=== PATIENT | female | born 1955 | race Caucasian/White ===

== ENCOUNTER → 2017-01-05 | Outpatient (CLI) | payer OTHER | END | disposition home or self-care (01) | LOC: YCFC.O 08:42 | PROVIDERS: ATTEND Nurse Practitioner Family | DX: R50.9 Fever, unspecified (principal) ==

== ENCOUNTER → 2017-02-15 | Outpatient (CLI) | payer OTHER | END | disposition home or self-care (01) | LOC: YCFC.O 18:21 | PROVIDERS: ATTEND Nurse Practitioner Family | DX: E11.9 Type 2 diabetes mellitus without complications (principal); E78.2 Mixed hyperlipidemia ==

== ENCOUNTER → 2017-03-25 | Outpatient (CLI) | payer OTHER | END | disposition home or self-care (01) | LOC: LAB.O 06:47 | PROVIDERS: ATTEND Nurse Practitioner Family | DX: D72.829 Elevated white blood cell count, unspecified (principal); E87.8 Other disorders of electrolyte and fluid balance, not elsewhere classified ==

== ENCOUNTER → 2017-06-13 | Outpatient (CLI) | payer OTHER ==
--- NOTE | 2017-06-16 08:04 | RAD ---
Procedure: XR CHEST 2 VIEWS Exam date: 06/13/2017 12:00 AM CDT Ordering Provider: Erica Chan Clinical Indication: PRE-OP Z01.818 Comparison: 01/25/2016 Findings: Cardiomediastinal silhouette is within normal limits. The lungs are clear. No pleural effusion or pneumothorax. Osseous structures are nonacute. Stable thoracic scoliosis. No evidence of active tuberculosis. Impression: No acute cardiopulmonary process. Electronically signed by: Zac Valdivia MD 06/16/2017 8:02 AM CDT
== END ==
LOC: RESP 21:22
PROVIDERS: ATTEND Nurse Practitioner Family
DX: Z01.818 Encounter for other preprocedural examination (principal)

== ENCOUNTER → 2017-06-25 | Outpatient (CLI) | payer OTHER | END | disposition home or self-care (01) | LOC: YCFC.O 07:01 | PROVIDERS: ATTEND Nurse Practitioner Family | DX: R80.9 Proteinuria, unspecified (principal); E87.1 Hypo-osmolality and hyponatremia ==

== ENCOUNTER → 2017-07-04 | Outpatient (CLI) | payer OTHER | END | disposition home or self-care (01) | LOC: YCFC.O 07:15 | PROVIDERS: ATTEND Orthopaedic Surgery | DX: N39.0 Urinary tract infection, site not specified (principal); R80.9 Proteinuria, unspecified; D72.829 Elevated white blood cell count, unspecified; Z01.818 Encounter for other preprocedural examination ==

== ENCOUNTER → 2017-07-15 | Outpatient (CLI) | payer OTHER ==
--- NOTE | 2017-07-15 13:16 | RAD ---
EXAM DESCRIPTION: Knee,Left Complete CLINICAL HISTORY: OSTEOARTHRITIS OF KNEE COMPARISON: July 20, 2015. FINDINGS: 4 views of the left knee including standing neutral and 45 degree flexion shows severe narrowing of the medial tibiofemoral compartment with mild flattening of the weightbearing articular surface of the femoral condyle. Moderate medial joint line osteophytes are seen with sclerotic changes at the articulation. Progressively worsened from previous exam. Mild varus deformity is seen. There is mild widening of the lateral tibiofemoral compartment with mild joint line osteophytes. Moderate osteophytes of the patellofemoral compartment with mild joint space narrowing is seen. The soft tissues are unremarkable. IMPRESSION: Interval worsening of 3 compartment osteoarthritic changes of the left knee with now severe advanced osteoarthritic changes of the medial tibiofemoral compartment. Electronically signed by: Theodore Lyons MD 07/15/2017 1:15 PM CDT
--- NOTE | 2017-07-15 13:16 | RAD ---
EXAM DESCRIPTION: Pelvis CLINICAL HISTORY: PAIN IN BILATERAL HIPS COMPARISON: None. TECHNIQUE: AP pelvis FINDINGS: The bony pelvis is normal. No fracturing is detected. Proximal femurs are unremarkable. Minimal acetabular osteophyte formation is observed bilaterally. IMPRESSION: Minimal degenerative changes are observed in both hips. The exam is otherwise unremarkable. Electronically signed by: Niranjan Oconnell MD 07/15/2017 1:15 PM CDT
--- NOTE | 2017-07-15 13:18 | RAD ---
EXAM DESCRIPTION: Knee,Right Complete CLINICAL HISTORY: OSTEOARTHRITIS OF KNEE COMPARISON: Left knee dated the same date TECHNIQUE: 4 views right FINDINGS: Loss of medial joint space is observed. Mild lateral femoral osteophyte formation is observed. No joint effusion is seen. Mild patellofemoral joint arthritis is seen. Calcific atherosclerotic changes observed in the popliteal artery. IMPRESSION: Tricompartmental joint arthritis is observed without evidence of a joint effusion. The changes are less pronounced than seen on the left. Electronically signed by: Niranjan Oconnell MD 07/15/2017 1:17 PM CDT
== END | disposition home or self-care (01) ==
LOC: RAD 08:01
PROVIDERS: ATTEND Orthopaedic Surgery
DX: M17.0 Bilateral primary osteoarthritis of knee (principal); M25.551 Pain in right hip; M25.552 Pain in left hip

== ENCOUNTER 2017-07-16 05:47 | Inpatient (IN) | payer OTHER ==
--- NOTE | 2017-07-15 08:12 | HP ---
CHIEF COMPLAINT: Left knee pain. HISTORY OF PRESENT ILLNESS: Ruby is a 59-year-old female with a history of knee pain that has been getting progressively worse. She has had multiple injections and at this point those injections failed to give her anymore relief. Because of her ongoing pain, she has requested operative intervention. After discussing the risks, benefits and alternatives to total knee arthroplasty, the patient has given informed consent. PAST SURGICAL HISTORY: 1. Tonsillectomy. 2. Hysterectomy. MEDICATIONS: 1. Bystolic. 2. Hydrochlorothiazide. 3. Rosuvastatin. 4. Metformin. 5. Carbamazepine. 6. Potassium. 7. Motrin p.r.n. ALLERGIES: NO KNOWN DRUG ALLERGIES. CODE STATUS: Full code. IMMUNIZATIONS: Up to date. SOCIAL HISTORY: The patient does not drink or use any illicit drugs. She does smoke. FAMILY HISTORY: None pertinent to today's complaint. REVIEW OF SYSTEMS: Negative except as indicated in the History of Present Illness. PHYSICAL EXAMINATION: VITAL SIGNS: Blood pressure 164/85. Pulse 78. Height 5'2". Weight 248. GENERAL: She is an obese female in no acute distress. MENTAL STATUS: The patient is awake, alert, and is able to give a good history and participate in the physical. The patient is oriented to person, place and time. SKIN: Normal tone and turgor. HEENT: Normocephalic, atraumatic. Pupils equal, round and reactive. Mucosal membranes are moist. NECK: Normal range of motion. No thyromegaly, no lymphadenopathy. CHEST: Normal respiratory excursion. CARDIAC: Regular rate and rhythm. No murmurs, rubs or gallops. MUSCULOSKELETAL: Bilateral upper extremities show full active range of motion without pain. Sensation is intact in the extremities and they are warm and well perfused. She has no deformities. The right lower extremity shows full range of motion of the hip. The knee has range of motion from 0 to about 125 degrees. She has slight limitation secondary to body habitus. Sensation is intact throughout the extremity. It is warm and well perfused. She has no varus/valgus or anterior/posterior laxity. She has no discernible effusion. The left lower extremity shows pretty severe pain to palpation. She has most prominent pain along the medial aspect. Sensation is intact throughout the extremity. It is warm and well perfused. She has no varus/valgus or anterior/ posterior laxity to the knee. IMAGING: X-rays show severe arthritis. ASSESSMENT: 1. Arthritis of the knee failed conservative measures. PLAN: The plan at this point is for total knee arthroplasty. We have discussed the risks, benefits, and alternatives to that and the patient has given informed consent. [facility][id number] [facility]
[~2017-07-16 05:47] MED LIST: LACTATED RINGERS 1,000 ML ONE; SODIUM CHL 0.9% 100ML MINI-BAG 100 ML IVPB ONE; SODIUM CHLORIDE 0.9% 100ML 100 ML IVPB ONE; SODIUM CHLORIDE 0.9% 250ML 250 ML ONE; TRANEXAMIC ACID 1,000 MG/10 ML VIAL ONE; VANCOMYCIN HCL INJ 1,000 MG VIAL IVPB ONE; ceFAZolin SODIUM 1 GM VIAL ONE
[2017-07-16] MEDS ORDERED: ceFAZolin SODIUM 1 GM VIAL ONE (06:11)
[2017-07-16] MEDS ORDERED: VANCOMYCIN HCL INJ 1,000 MG VIAL IVPB ONE ×3 (06:12→17:11)
[2017-07-16] MEDS ORDERED: MORPHINE SULFATE *EPIDURAL* 0.5 MG/ML VIAL ONE (06:21)
[2017-07-16] MEDS ORDERED: ACETAMINOPHEN IV 1000MG 100 ML ONE (06:21)
[2017-07-16] MEDS ORDERED: MIDAZOLAM INJ 5 MG/5 ML VIAL ONE (06:22)
[2017-07-16] MEDS ORDERED: fentaNYL CITRATE INJ 50 MCG/ML AMP ONE (06:22)
[2017-07-16] MEDS ORDERED: SCOPOLAMINE PATCH 1.5MG 1 EA TD ONE (06:34)
[2017-07-16] MEDS ORDERED: LEVALBUTEROL NEBS 1.25 MG/3 ML VIAL NEB ONE ×3 (06:38→10:11)
[2017-07-16] MEDS: ceFAZolin SODIUM 1 GM VIAL ONE ×2 (08:02→09:11)
[2017-07-16] MEDS: VANCOMYCIN HCL INJ 1,000 MG VIAL IVPB ONE ×2 (08:04→09:11)
[2017-07-16] MEDS: BUPIVACAINE 0.25% W/EPI 50 ML VIAL INJ ONE ×2 (08:04→09:51)
[2017-07-16] MEDS ORDERED: MORPHINE PCA 1 MG/ML 100 ML BAG IVPB ONE (08:29)
[2017-07-16] MEDS ORDERED: KETAMINE HCL 100 MG/ML VIAL ONE (09:03)
[2017-07-16] MEDS ORDERED: ALUMINUM & MAGNESIUM HYDROXIDE 30 ML UD PO PRN (09:34)
[2017-07-16] MEDS ORDERED: MAGNESIUM HYDROXIDE 30 ML UD PO PRN (09:34)
[2017-07-16] MEDS ORDERED: MORPHINE SULFATE INJ 10 MG/ML VIAL IV PRN (09:34)
[2017-07-16] MEDS ORDERED: BISACODYL SUPPOSITORY 10 MG PR PRN (09:34)
[2017-07-16] MEDS ORDERED: ONDANSETRON INJ 4 MG/2 ML VIAL IV PRN (09:34)
[2017-07-16] MEDS ORDERED: ZOLPIDEM TARTRATE 5 MG TAB PO PRN (09:34)
[2017-07-16] MEDS ORDERED: TRANEXAMIC ACID INJ 1,000 MG in SODIUM CHLORIDE 0.9% 100ML 100 ML IVPB ONE (09:34)
[2017-07-16] MEDS ORDERED: ACETAMINOPHEN 500 MG TAB PO PRN (09:34)
[2017-07-16] MEDS ORDERED: NALOXONE HCL INJ 0.4 MG/ML VIAL IV PRN (09:34)
[2017-07-16] MEDS ORDERED: ACETAMINOPHEN 325 MG TAB PO PRN (09:34)
[2017-07-16] MEDS ORDERED: PROMETHAZINE HCL INJ 12.5 MG in SODIUM CHLORIDE 0.9% 50ML 50 ML IVPB PRN (09:34)
[2017-07-16] MEDS ORDERED: BENZOCAINE-MENTH LOZ (CEPACOL) 1 EA LOZ MT PRN (09:34)
[2017-07-16] MEDS ORDERED: DEX 5% W/NACL 0.45% 1000ML 1,000 ML IVS PRN (09:34)
[2017-07-16] MEDS ORDERED: PROMETHAZINE HCL INJ 25 MG in SODIUM CHLORIDE 0.9% 50ML 50 ML IVPB PRN (09:34)
[2017-07-16] MEDS ORDERED: MORPHINE SULFATE INJ 10 MG/ML VIAL IM PRN (09:34)
[2017-07-16] MEDS ORDERED: SUGAMMADEX SODIUM 200 MG/2 ML VIAL IV ONE (09:53)
[2017-07-16] MEDS ORDERED: MORPHINE PCA 1 MG/ML 100ML 1 BAG in PREMIX BAG 1 BAG IVPB SCH (10:00)
[2017-07-16] MEDS: IV SET AND CAP CHANGE INJ INJ SCH (11:55)
[2017-07-16] MEDS ORDERED: raNITIdine HCL INJ 25 MG/ML VIAL IV ONE (12:00)
[2017-07-16] MEDS ORDERED: ROCURONIUM BROMIDE 10 MG/ML VIAL IV ONE (12:00)
[2017-07-16] MEDS ORDERED: LIDOCAINE 1% 10 ML VIAL INJ ONE (12:00)
[2017-07-16] MEDS ORDERED: DEXAMETHASONE INJ 10 MG/ML VIAL IV ONE (12:00)
[2017-07-16] MEDS: SODIUM CHLORIDE 0.45% 1000ML 1,000 ML IVS PRN (12:00)
[2017-07-16] MEDS ORDERED: ePHEDrine SULF 50 MG/ML IV ONE (12:00)
[2017-07-16] MEDS ORDERED: PROPOFOL 200 MG/20 ML VIAL IV ONE (12:00)
[2017-07-16] MEDS ORDERED: diphenhydrAMINE HCL 50 MG/ML VIAL IV PRN (12:52)
[2017-07-16] MEDS ORDERED: GLUCAGON INJ 1 MG VIAL SUBCU PRN (14:00)
[2017-07-16] MEDS ORDERED: DEXTROSE 50% 25 GM/50 ML SYG IV PRN (14:00)
[2017-07-16] MEDS ORDERED: CELECOXIB 100 MG CAP ONE (14:08)
[2017-07-16] MEDS ORDERED: CEFAZOLIN SODIUM 2 GRAMS IV 50 ML IVPB ONE ×2 (14:08→23:20)
--- NOTE | 2017-07-16 14:29 | CONS ---
SUPERVISING PHYSICIAN: Lake Moore MD DATE OF CONSULTATION: 07/16/17 CHIEF COMPLAINT: Left knee pain. HISTORY OF PRESENT ILLNESS: This is a 61-year-old female patient that has a significant history of knee pain that has progressively worsened. She has had multiple injections and other conservative measures and they have failed to give her any pain relief. Due to her ongoing pain, she had requested Dr. Jack Pittman, orthopedic surgeon, to perform operative intervention. She was admitted today for left total knee arthroplasty. I am seeing the patient postoperatively. PAST MEDICAL HISTORY: 1. Seizures with one grand mal seizure in 1997. Otherwise, she occasionally has petit mal seizures. 2. Hypertension. 3. Hyperlipidemia. 4. Mild scoliosis. 5. Diabetes mellitus, type 2. PAST SURGICAL HISTORY: 1. Tonsillectomy. 2. Hysterectomy. CURRENT MEDICATIONS: Per the EMR and awaiting verification. ALLERGIES: NO KNOWN DRUG ALLERGIES. CODE STATUS: Full code. FAMILY HISTORY: Noncontributory. SOCIAL HISTORY: She smokes approximately 1/2 pack of cigarettes daily. She drinks alcohol on a social basis only. She denies any illicit drug use. She is . She has one child. She lives in [place] and works at [employer]. REVIEW OF SYSTEMS: GENERAL: Denies fever, fatigue or weight changes. HEENT: Denies sinus symptoms, ear pain, vision changes or sore throat. RESPIRATORY: Negative for wheezing, coughing or shortness of breath. CARDIAC: Negative for chest pain, palpitations or tachycardia. GASTROINTESTINAL: Negative for vomiting, diarrhea, constipation or abdominal pain. MUSCULOSKELETAL: As per history of present illness. SKIN: Denies lesions or rashes. NEUROLOGIC: Denies any recent seizures, headache or dizziness. PHYSICAL EXAMINATION: VITAL SIGNS: Afebrile. Heart rate 87. Blood pressure 161/82. Respiratory rate 14. O2 saturation 93% on 2 liters nasal cannula. GENERAL: This is a 61-year-old, female patient who is lying in her hospital bed. She is in no acute distress . HEENT: Normocephalic, atraumatic. Pupils are equal and reactive. Oropharynx is clear. NECK: Supple without mass. RESPIRATORY: Essentially clear to auscultation bilaterally. CHEST: There is equal rise and fall of the chest with inspiration and expiration. CARDIOVASCULAR: Regular rate and rhythm. ABDOMEN: Soft, nondistended, nontender. Bowel sounds are positive. EXTREMITIES: She has an Iceman in place to her left knee. She has a trace pedal edema to bilateral lower extremities. Pedal pulses are palpable at +2 bilaterally. NEUROLOGIC: Awake, alert and oriented times three. LABORATORY: Glucoses run between 105 and 138. UA shows greater than 300 urine protein and trace intact urine blood. Otherwise, within normal limits. Her other x-rays and labs are as per the EMR. ASSESSMENT: 1. Arthritis of the left knee that has failed conservative measures, status post left total knee arthroplasty per Dr. Jack Pittman, orthopedic surgeon, postoperative day 0. 2. Seizure disorder on Tegretol. 3. Hypertension. 4. Hyperlipidemia. 5. Diabetes mellitus, type 2. PLAN: We will continue present supportive care. Her orthopedic issues will be per Dr. Pittman. Tomorrow, she will begin her physical therapy for strengthening and conditioning. I have restarted her home medications. I have also ordered a sliding scale insulin for any elevated blood sugars. She also complained of some itching, so I have ordered Benadryl for that. Otherwise, we will continue to monitor the patient closely and follow as needed. Dr. Moore is the collaborating physician and available for consultation. #[id number] [facility]
[2017-07-16] MEDS: CEFAZOLIN SODIUM 2 GRAMS IV 2 GM in PREMIX BAG 1 BAG IVPB SCH ×2 (15:20→23:26)
[2017-07-16] MEDS: INSULIN LISPRO 100 UNITS/ML PEN SUBCU SCH ×2 (16:29→21:05)
--- NOTE | 2017-07-16 16:42 | RAD ---
EXAM DESCRIPTION: Knee,Left 2 or More Views CLINICAL HISTORY: TKA COMPARISON: 15 July 2017 TECHNIQUE: AP and lateral views of the left knee FINDINGS: A total knee arthroplasty is observed in place. Positioning is near-anatomic. Postoperative air is observed anteriorly. IMPRESSION: New left total knee arthroplasty. Electronically signed by: Niranjan Oconnell MD 07/16/2017 4:41 PM CDT
[2017-07-16] MEDS ORDERED: SODIUM CHLORIDE 0.9% 250ML 250 ML ONE (16:49)
[2017-07-16] MEDS: metFORMIN HCL 500 MG TAB PO SCH (17:08)
[2017-07-16] MEDS: CELECOXIB 100 MG CAP PO SCH (17:08)
[2017-07-16] MEDS: VANCOMYCIN HCL INJ 1,000 MG in SODIUM CHLORIDE 0.9% 250ML 250 ML IVPB SCH (17:11)
[2017-07-16] MEDS: ALBUTEROL SULFATE 2.5 MG/3 ML VIAL NEB PRN ×3 (17:41→21:14)
[2017-07-16] MEDS ORDERED: NON-FORMULARY MEDICATION 1 EA MIS (Rosuvastatin Calcium [Crestor] 20 MG) PO SCH (21:00)
[2017-07-16] MEDS ORDERED: NON-FORMULARY MEDICATION 1 EA MIS (Potassium [Potassium] 99 MG) PO SCH (21:00)
[2017-07-16] MEDS ORDERED: NEBIVOLOL 2.5 MG TAB ONE (21:03)
[2017-07-16] MEDS: DOCUSATE CALCIUM 240 MG CAP PO SCH (21:24)
[2017-07-16] MEDS: ATORVASTATIN 20 MG TAB PO SCH (21:24)
[2017-07-16] MEDS: ENOXAPARIN SODIUM 30 MG/0.3 ML SYG SUBCU SCH (21:24)
[2017-07-16] MEDS: carBAMazepine 200 MG TAB PO SCH (21:24)
[2017-07-16] MEDS: SODIUM CHLORIDE 0.9% (FLUSH) 10 ML SYG IV SCH (21:25)
[2017-07-16] MEDS: NON-FORMULARY MEDICATION 1 EA MIS (Nebivolol Hcl [Bystolic] 10 MG) PO SCH (21:25)
[2017-07-17] MEDS ORDERED: VANCOMYCIN HCL INJ 1,000 MG VIAL IVPB ONE ×3 (05:02→20:36)
[2017-07-17] MEDS ORDERED: SODIUM CHLORIDE 0.9% 250ML 250 ML ONE ×3 (05:02→20:35)
[2017-07-17] MEDS: VANCOMYCIN HCL INJ 1,000 MG in SODIUM CHLORIDE 0.9% 250ML 250 ML IVPB SCH ×2 (05:28→17:37)
[2017-07-17] MEDS: traMADol HCL 50 MG TAB PO PRN (05:43)
[2017-07-17] MEDS: CYCLOBENZAPRINE HCL 10 MG TAB PO PRN ×2 (05:43→14:13)
[2017-07-17] MEDS: NON-FORMULARY MEDICATION 1 EA MIS (Nebivolol Hcl [Bystolic] 10 MG) PO SCH ×2 (06:39→20:59)
[2017-07-17] MEDS: [UNRECOGNIZED DRUG - OTHER] PO SCH (06:39)
[2017-07-17] MEDS: CELECOXIB 100 MG CAP PO SCH ×2 (06:39→17:30)
[2017-07-17] MEDS: NEBIVOLOL HCL 20 MG PO SCH (06:40)
[2017-07-17] MEDS: metFORMIN HCL 500 MG TAB PO SCH ×2 (06:44→17:30)
[2017-07-17] MEDS ORDERED: POTASSIUM 198 MG PO SCH (07:00)
[2017-07-17] MEDS ORDERED: MAGNESIUM OXIDE 400 MG TAB ONE (07:38)
[2017-07-17] MEDS ORDERED: CEFAZOLIN SODIUM 2 GRAMS IV 50 ML IVPB ONE ×3 (07:39→20:36)
[2017-07-17] MEDS: INSULIN LISPRO 100 UNITS/ML PEN SUBCU SCH ×4 (07:45→20:58)
[2017-07-17] MEDS: ALBUTEROL SULFATE 2.5 MG/3 ML VIAL NEB PRN (08:11)
--- NOTE | 2017-07-17 08:23 | PN ---
DATE: 07/16/17 POSTOPERATIVE CHECK SUBJECTIVE: Ms. Israel is doing really well and she has no pain at this time. OBJECTIVE: Afebrile. Vital signs stable. Dressing is clean, dry and intact. ASSESSMENT: Status post total knee arthroplasty. PLAN: She will begin weight-bearing as tolerated on postoperative day 1. #[id number] [facility]
[2017-07-17] MEDS: HYDROcodone 5MG/APAP 325MG 1 EA TAB PO PRN ×2 (08:35→14:13)
[2017-07-17] MEDS: carBAMazepine 200 MG TAB PO SCH ×2 (08:36→20:59)
[2017-07-17] MEDS: MAGNESIUM OXIDE 400 MG TAB PO SCH (08:36)
[2017-07-17] MEDS: CEFAZOLIN SODIUM 2 GRAMS IV 2 GM in PREMIX BAG 1 BAG IVPB SCH ×3 (08:38→23:42)
--- NOTE | 2017-07-17 08:46 | OP ---
DATE OF PROCEDURE: 07/16/17 PREOPERATIVE DIAGNOSIS: 1. Osteoarthritis of the left knee. POSTOPERATIVE DIAGNOSIS: 1. Osteoarthritis of the left knee. PROCEDURE: 1. Left total knee arthroplasty. SURGEON: Jack Pittman MD. SCHOOL ADMINISTRATOR: Demario Botello CST, SA-C. ANESTHESIA: General. COMPLICATIONS: None. FINDINGS: Severe arthritis of the knee. INDICATION: Ms. Israel has a long history of knee pain for which she has had multiple injections and has had other conservative measures. All conservative measures have failed to give her relief and, as such, she has requested operative intervention. After discussing the risks, benefits and alternatives to operative intervention, the patient has given informed consent for total knee arthroplasty. PROCEDURE: The patient was brought to the Operating Room and placed in supine position. General anesthesia was induced and the patient's leg was sterilely prepped and draped. Following prepping and draping, the distal femur was exposed and using an intramedullary guide, the distal femoral cut was made. The appropriate sized cutting block was measured, pinned into place, and the anterior, posterior, and chamfer cuts were made. The ACL was transected and the tibia was subluxed. Both the medial and lateral menisci were removed. An intramedullary guide was used to make the proximal tibial cut. The appropriate sized base plate was placed and a trial polyethylene was placed. The trial femur was placed, the knee was reduced, and the knee was taken through a range of motion. The knee was stable in anterior, posterior, varus and valgus stress. The patella tracked anatomically without evidence of subluxation or dislocation. After trialing, the trial components were removed and the bony surfaces were thoroughly irrigated with saline. Following irrigation, the surfaces were dried and the final components were cemented into place. The excess cement was removed and the remaining cement was allowed to cure. The knee was again taken through a range of motion to confirm stability. The wound was then irrigated with saline and closure was performed using PDS to approximate the arthrotomy followed by closure of the subcutaneous tissues with a combination of running and interrupted Monocryl sutures. Sterile dressing was placed. The patient was awoken from anesthesia and taken to Recovery. POSTOPERATIVE INSTRUCTIONS: The patient will be weight-bearing as tolerated on postoperative day 1. COMPONENTS: [employer] Tri[employer] knee, size 4 femur, size 4 tibia, 11 mm insert. #[id number] [facility]
[2017-07-17] MEDS: ENOXAPARIN SODIUM 30 MG/0.3 ML SYG SUBCU SCH ×2 (10:15→21:01)
--- NOTE | 2017-07-17 13:35 | PN ---
SUPERVISING PHYSICIAN: Lake Moore MD DATE: 07/17/17 SUBJECTIVE: The patient is sitting in her hospital bed. She denies any chest pain, shortness of breath, coughing or abdominal pain. No nausea or vomiting. She does state she has a fairly significant history of hypokalemia and she did not get her morning potassium because pharmacy did not have the equivalent dosing and she was quite worried about that. She also states she does have chronic hyponatremia. Otherwise, she feels like her progress is going well. OBJECTIVE: VITAL SIGNS: Afebrile. Pulse rate 74. Blood pressure 148/72. Respiratory rate 18. O2 saturation 96% on room air. LUNGS: Clear to auscultation bilaterally. CARDIAC: Regular rate and rhythm. ABDOMEN: Soft, nondistended, nontender. Bowel sounds are positive. EXTREMITIES: There is a dressing to her left knee that is dry and intact. She has the Iceman in place. Bilateral pedal pulses are palpable at +2. NEUROLOGIC: Awake, alert and oriented times three. LABORATORY: Hemoglobin 2.3, hematocrit 37. Blood sugars have run between 96 and 138. All other labs and films have been reviewed via the EMR. ASSESSMENT: 1. Arthritis of the left knee that has failed conservative measures, status post left total knee arthroplasty per Dr. Jack Pittman, orthopedic surgeon, postoperative day 1. 2. Seizure disorder on Tegretol. 3. Hypertension. 4. Hyperlipidemia. 5. Diabetes mellitus, type 2. 6. Chronic hyponatremia. 7. History of hypokalemia. PLAN: We will continue present supportive care. Strengthening and conditioning will be per physical therapy. Orthopedic issues will be per Dr. Pittman. I will start her on some potassium today and we will check her electrolytes in the morning. I have encouraged good pulmonary hygiene. We will continue to monitor the patient closely and follow as needed. Dr. Moore is the collaborating physician and available for consultation. [facility][id number] [facility]
[2017-07-17] MEDS: POTASSIUM CHLORIDE 10 MEQ TAB PO SCH (14:13)
[2017-07-17] MEDS: SODIUM CHLORIDE 0.45% 1000ML 1,000 ML IVS PRN (20:03)
[2017-07-17] MEDS: ATORVASTATIN 20 MG TAB PO SCH (20:59)
[2017-07-17] MEDS: DOCUSATE CALCIUM 240 MG CAP PO SCH (20:59)
[2017-07-18] MEDS: ALBUTEROL SULFATE 2.5 MG/3 ML VIAL NEB PRN (02:30)
[2017-07-18] MEDS: [UNRECOGNIZED DRUG - OTHER] PO SCH (06:12)
[2017-07-18] MEDS: NEBIVOLOL HCL 20 MG PO SCH (06:12)
[2017-07-18] MEDS: VANCOMYCIN HCL INJ 1,000 MG in SODIUM CHLORIDE 0.9% 250ML 250 ML IVPB SCH ×2 (06:12→17:35)
[2017-07-18] MEDS: SODIUM CHLORIDE 0.9% (FLUSH) 10 ML SYG IV PRN ×3 (06:12→17:38)
[2017-07-18] MEDS: traMADol HCL 50 MG TAB PO PRN (06:37)
[2017-07-18] MEDS: INSULIN LISPRO 100 UNITS/ML PEN SUBCU SCH ×4 (07:49→21:19)
[2017-07-18] MEDS ORDERED: CEFAZOLIN SODIUM 2 GRAMS IV 50 ML IVPB ONE ×3 (08:00→19:47)
[2017-07-18] MEDS: CELECOXIB 100 MG CAP PO SCH ×2 (08:09→16:46)
[2017-07-18] MEDS: metFORMIN HCL 500 MG TAB PO SCH ×2 (08:10→16:46)
[2017-07-18] MEDS: POTASSIUM CHLORIDE 10 MEQ TAB PO SCH (08:10)
--- NOTE | 2017-07-18 08:14 | PN ---
DATE: 07/18/17 SUBJECTIVE: Ruby is doing well. She is in some pain, but it is improved from yesterday. OBJECTIVE: Afebrile. Vital signs stable. The wound is clean. There are no signs or symptoms of infection. ASSESSMENT: Status post total knee arthroplasty. PLAN: She will continue with weight-bearing as tolerated. We are going to have her continue CPM as tolerated as well. [facility][id number] [facility]
[2017-07-18] MEDS: CEFAZOLIN SODIUM 2 GRAMS IV 2 GM in PREMIX BAG 1 BAG IVPB SCH ×2 (08:43→15:31)
[2017-07-18] MEDS: MAGNESIUM OXIDE 400 MG TAB PO SCH (08:45)
[2017-07-18] MEDS: carBAMazepine 200 MG TAB PO SCH ×2 (08:45→21:04)
[2017-07-18] MEDS: SODIUM CHLORIDE 0.9% (FLUSH) 10 ML SYG IV SCH ×2 (08:45→21:04)
[2017-07-18] MEDS: HYDROcodone 5MG/APAP 325MG 1 EA TAB PO PRN ×3 (08:54→17:06)
[2017-07-18] MEDS: ENOXAPARIN SODIUM 30 MG/0.3 ML SYG SUBCU SCH ×2 (12:00→21:04)
[2017-07-18] MEDS ORDERED: VANCOMYCIN HCL INJ 1,000 MG VIAL IVPB ONE (17:27)
[2017-07-18] MEDS ORDERED: SODIUM CHLORIDE 0.9% 250ML 250 ML ONE (17:27)
--- NOTE | 2017-07-18 19:31 | PN ---
DATE: 07/18/17 SUPERVISING PHYSICIAN: Lake Moore M.D. SUBJECTIVE: The patient is in bed utilizing her CPM. She said her pain has been fairly well controlled. She has not had any other complications. No nausea or vomiting. She remains afebrile. OBJECTIVE: VITAL SIGNS: T max 99.0, pulse 100, blood pressure 124/84, respirations 16, satting 98% on room air. I's and O's show a positive balance of 1043 with 2443 in, 1400 out. Weight is 115.5 kg. CHEST: Lungs were clear to auscultation bilaterally. HEART: Regular rate and rhythm. ABDOMEN: Soft, non-tender. Positive bowel sounds. EXTREMITIES: Bulky dressing remains in place over the left knee. Pulses distally are strong with capillary refill brisk. NEUROLOGIC: She is alert and oriented times three. LABORATORY: Postoperative hemoglobin was 12.3 and hematocrit 37.0. Repeat sodium this morning was 127, potassium 3.7. ASSESSMENT: 1. Arthritis of the left knee having failed conservative treatment measures in the outpatient setting with postoperative left knee arthroplasty, postoperative day [address] Jack Pittman. 2. Seizure disorder on Tegretol likely source of chronic hyponatremia. 3. Hypertension. 4. Hyperlipidemia. 5. Diabetes mellitus type 2., stable. 6. Chronic hyponatremia again felt to be secondary to Tegretol. 7. History of hypokalemia, although normalized on current labs. PLAN: Will continue to follow the patient as she progresses through her orthopedic physical therapy services. Will closely monitor her electrolytes once she is off IV fluids. Will recheck a BMP either tomorrow or the next. Anticipate discharge at Physical Therapy and Orthopedic Services' discretion. Until then, will continue to monitor and treat appropriately. #[id number] [facility]
[2017-07-18] MEDS: ATORVASTATIN 20 MG TAB PO SCH (21:03)
[2017-07-18] MEDS: NON-FORMULARY MEDICATION 1 EA MIS (Nebivolol Hcl [Bystolic] 10 MG) PO SCH (21:03)
[2017-07-18] MEDS: DOCUSATE CALCIUM 240 MG CAP PO SCH (21:03)
[2017-07-18] MEDS: TEMAZEPAM 15 MG CAP PO PRN (21:05)
[2017-07-19] MEDS: CEFAZOLIN SODIUM 2 GRAMS IV 2 GM in PREMIX BAG 1 BAG IVPB SCH ×2 (00:05→08:32)
[2017-07-19] MEDS: HYDROcodone 5MG/APAP 325MG 1 EA TAB PO PRN ×5 (00:42→21:28)
[2017-07-19] MEDS: CYCLOBENZAPRINE HCL 10 MG TAB PO PRN ×3 (02:15→20:43)
[2017-07-19] MEDS ORDERED: VANCOMYCIN HCL INJ 1,000 MG VIAL IVPB ONE (05:07)
[2017-07-19] MEDS ORDERED: SODIUM CHLORIDE 0.9% 250ML 250 ML ONE (05:07)
[2017-07-19] MEDS: VANCOMYCIN HCL INJ 1,000 MG in SODIUM CHLORIDE 0.9% 250ML 250 ML IVPB SCH (05:28)
[2017-07-19] MEDS: INSULIN LISPRO 100 UNITS/ML PEN SUBCU SCH ×4 (07:00→20:49)
[2017-07-19] MEDS: [UNRECOGNIZED DRUG - OTHER] PO SCH (07:09)
[2017-07-19] MEDS: metFORMIN HCL 500 MG TAB PO SCH ×2 (07:10→17:11)
[2017-07-19] MEDS: CELECOXIB 100 MG CAP PO SCH ×2 (07:10→17:11)
[2017-07-19] MEDS: NEBIVOLOL HCL 20 MG PO SCH (07:10)
[2017-07-19] MEDS: POTASSIUM CHLORIDE 10 MEQ TAB PO SCH (07:11)
[2017-07-19] MEDS ORDERED: CEFAZOLIN SODIUM 2 GRAMS IV 50 ML IVPB ONE (08:25)
[2017-07-19] MEDS: carBAMazepine 200 MG TAB PO SCH ×2 (08:32→20:44)
[2017-07-19] MEDS: MAGNESIUM OXIDE 400 MG TAB PO SCH (08:32)
[2017-07-19] MEDS: SODIUM CHLORIDE 0.9% (FLUSH) 10 ML SYG IV SCH ×2 (08:33→20:44)
[2017-07-19] MEDS: IV SET AND CAP CHANGE INJ INJ SCH (10:39)
[2017-07-19] MEDS: ENOXAPARIN SODIUM 30 MG/0.3 ML SYG SUBCU SCH ×2 (10:56→21:25)
--- NOTE | 2017-07-19 13:31 | PN ---
SUPERVISING PHYSICIAN: Lake Moore MD DATE: 07/19/17 SUBJECTIVE: The patient continues to make slow progress with her physical therapy efforts. She has had fairly good control of her pain. She continues to the CPM. She has had no other complications, no other nausea or vomiting. She remains afebrile. OBJECTIVE: VITAL SIGNS: T-max 98.8. Pulse 82. Blood pressure 164/75. Respirations 22. Saturation 97% on room air. I&Os show positive balance of 1043 with 2443 in, 1400 out. Weight 115.5 kg. CHEST: Lungs clear to auscultation bilaterally. HEART: Regular rate and rhythm. ABDOMEN: Obese, but soft and nontender. Positive bowel sounds. EXTREMITIES: Dressing remains in place over the left knee. It is clean and dry. She is currently utilizing the CPM. Pulses distally are strong with brisk capillary refill. NEUROLOGIC: Alert and oriented times three. ASSESSMENT: 1. Arthritis of the left knee having failed conservative treatment measures in the outpatient setting with postoperative left knee arthroplasty, postoperative day [address] Jack Pittman. 2. Seizure disorder on Tegretol, likely source of chronic hyponatremia. 3. Hypertension. 4. Hyperlipidemia. 5. Diabetes mellitus type 2., stable. 6. Chronic hyponatremia again felt to be secondary to Tegretol. 7. History of hypokalemia, although normalized on current labs postoperatively. PLAN: I will continue to follow the patient as she progresses through physical therapy efforts with anticipation of discharge tomorrow to continue with outpatient wellness treatment for physical therapy. Until discharge, we will continue to monitor the patient closely and treat appropriately. #[id number] [facility]
[2017-07-19] MEDS: NON-FORMULARY MEDICATION 1 EA MIS (Nebivolol Hcl [Bystolic] 10 MG) PO SCH (20:42)
[2017-07-19] MEDS: ATORVASTATIN 20 MG TAB PO SCH (20:43)
[2017-07-19] MEDS: DOCUSATE CALCIUM 240 MG CAP PO SCH (20:44)
[2017-07-19] MEDS ORDERED: MAGNESIUM HYDROXIDE 30 ML UD PO ONE (21:00)
[2017-07-19] MEDS ORDERED: BISACODYL SUPPOSITORY 10 MG PR ONE (21:00)
[2017-07-19] MEDS: TEMAZEPAM 15 MG CAP PO PRN (21:25)
[2017-07-20] MEDS: HYDROcodone 5MG/APAP 325MG 1 EA TAB PO PRN ×2 (02:30→08:00)
[2017-07-20] MEDS: traMADol HCL 50 MG TAB PO PRN (03:17)
[2017-07-20] MEDS: CYCLOBENZAPRINE HCL 10 MG TAB PO PRN (05:23)
[2017-07-20] MEDS: NEBIVOLOL HCL 20 MG PO SCH (06:06)
[2017-07-20] MEDS: [UNRECOGNIZED DRUG - OTHER] PO SCH (06:06)
[2017-07-20] MEDS: INSULIN LISPRO 100 UNITS/ML PEN SUBCU SCH ×2 (07:58→12:30)
[2017-07-20] MEDS: metFORMIN HCL 500 MG TAB PO SCH (07:59)
[2017-07-20] MEDS: CELECOXIB 100 MG CAP PO SCH (07:59)
[2017-07-20] MEDS: POTASSIUM CHLORIDE 10 MEQ TAB PO SCH (07:59)
[2017-07-20] MEDS: MAGNESIUM OXIDE 400 MG TAB PO SCH (08:00)
[2017-07-20] MEDS: carBAMazepine 200 MG TAB PO SCH (08:00)
[2017-07-20] MEDS: ALBUTEROL SULFATE 2.5 MG/3 ML VIAL NEB PRN (08:04)
[2017-07-20 08:33] VITALS: BP 115/74; TEMP 97.6; O2SAT 97
[2017-07-20] MEDS: SODIUM CHLORIDE 0.9% (FLUSH) 10 ML SYG IV SCH (09:41)
[2017-07-20] MEDS: ENOXAPARIN SODIUM 30 MG/0.3 ML SYG SUBCU SCH (10:12)
[2017-07-20] MEDS ORDERED: PNEUMOCOCCAL VACCINE 0.5 ML INJ IM ONE (10:15)
--- NOTE | 2017-07-20 13:56 | DS ---
SUPERVISING PHYSICIAN: Lake Moore M.D. DISCHARGE DIAGNOSIS: 1. Arthritis of the left knee having failed conservative treatment measures in the outpatient setting with postoperative left knee arthroplasty, postoperative day [address] Jack Pittman. 2. Seizure disorder on Tegretol, likely contributing to her chronic hyponatremia. 3. Hypertension. 4. Hyperlipidemia. 5. Diabetes mellitus type 2, stable. 6. Chronic hyponatremia felt to be secondary to Tegretol. 7. History of hypokalemia, resolved, normalized prior to discharge. HISTORY OF PRESENT ILLNESS: Ms. Israel is a 61 year-old female patient that has a significant history of knee pain that had progressively worsened. She had multiple injections and other conservative measured that failed to give her any significant pain relief. Due to the ongoing pain, she had requested Dr. Jack Pittman, orthopedic surgeon, perform operative intervention. She was admitted on 07/16/17 and had a total left knee arthroplasty and was followed postoperatively. LABORATORY: Postoperative H&H, hemoglobin 12.3, hematocrit 37.0. Chemistries postoperatively she had blood sugars that ranged from 88 to 138. Electrolytes completed on 07/18/17 showed a persistent hyponatremia with sodium 127, potassium 3.7, BUN 11, creatinine 0.56. Liver functions all showed to be within normal limits. MICROBIOLOGY: No specimens were submitted for review. RADIOLOGY: None were done postoperatively. PROCEDURES: 1. Left total knee arthroplasty performed by Dr. Jack Pittman. Please see his Operative Report for full details. CONSULTATION: Hospitalist consultation. Please refer to Consultation for full details. HOSPITAL COURSE: Ms. Israel is a 61 year-old female patient as noted in History of Present Illness admitted on 07/16 and had a left knee total replacement performed by Dr. Jack Pittman. She was seen immediately postoperatively and followed through her hospital course as she progressed through her physical therapy. She had no complications postoperatively. She did well with physical therapy and was felt on date of discharge, 07/20/17, able to continue with outpatient treatment plan. PLAN: Ms. Israel was discharged on 07/20/17 with instructions to followup with Dr. Pittman as scheduled on 08/01/17 at 9:45 AM. Wound care as per Dr. Pittman's postoperative wound care management instructions. She is to resume her home medications as prior to hospitalization and start new medications as prescribed. She was instructed to return to the hospital or call Dr. Pittman if she had any worsening or concerning symptoms. At discharge, prescriptions included: 1. Cyclobenzaprine 10 mg every 8 hours as needed for spasms, #30. 2. [place] 5/325 every 4 hours as needed, prescription provided by Dr. Pittman. 3. Xarelto 10 mg daily for 8 days. Diet at discharge is diabetic diet. Activity as per Physical Therapy. Walk with a walker only. No tub baths, shower only. Increase as tolerated. [facility]. Condition at discharge was stable and improved. [facility][id number] [facility]
--- NOTE | 2017-07-22 13:58 | PN ---
DATE: 07/19/17 SUBJECTIVE: Ruby is doing okay although she is a little bit emotional this morning. OBJECTIVE: Afebrile. Vital signs stable. Wound is clean. There are no signs or symptoms of infection. ASSESSMENT: Status post total knee arthroplasty. PLAN: At this point, we have encouraged Ruby that she is doing really well. She just has fears that she is being a burden on her friends. We are going to continue to encourage her about that and let her know that she is continuing to do extremely well with her therapy. She is going to continue with that and we will likely discharge her in the next day or two to home. #[id number] [facility]
== END 2017-07-20 11:55 | disposition home or self-care (01) | DRG 470 ==
LOC: AMB 05:47 → MS 11:10
PROVIDERS: ADMIT Orthopaedic Surgery; ATTEND Nurse Practitioner Family
PROC: 0SRD0J9 Replacement of Left Knee Joint with Synthetic Substitute, Cemented, Open Approach (ICD-10-PCS; principal; 2017-07-16 07:12)
DX: M17.12 Unilateral primary osteoarthritis, left knee (principal); E87.1 Hypo-osmolality and hyponatremia; Z68.42 Body mass index [BMI] 45.0-49.9, adult; G40.909 Epilepsy, unspecified, not intractable, without status epilepticus; T42.1X5A Adverse effect of iminostilbenes, initial encounter; Y92.009 Unspecified place in unspecified non-institutional (private) residence as the place of occurrence of the external cause; I10 Essential (primary) hypertension; E78.5 Hyperlipidemia, unspecified; E11.9 Type 2 diabetes mellitus without complications; M41.9 Scoliosis, unspecified; F17.210 Nicotine dependence, cigarettes, uncomplicated; J45.909 Unspecified asthma, uncomplicated; E66.9 Obesity, unspecified; Z79.899 Other long term (current) drug therapy; Z79.84 Long term (current) use of oral hypoglycemic drugs; Z79.82 Long term (current) use of aspirin

== ENCOUNTER → 2017-09-28 | Outpatient (CLI) | payer OTHER | LOC: LAB.O 00:47 | PROVIDERS: ATTEND Nurse Practitioner Family | DX: I10 Essential (primary) hypertension (principal); E78.2 Mixed hyperlipidemia ==

== ENCOUNTER → 2018-03-27 | Outpatient (CLI) | payer OTHER | LOC: LAB.O 18:30 | PROVIDERS: ATTEND Nurse Practitioner Family | DX: E11.9 Type 2 diabetes mellitus without complications (principal) ==

== ENCOUNTER 2018-08-18 19:22 | Emergency (ER) | payer OTHER ==
[2018-08-18] MEDS ORDERED: PROMETHAZINE HCL INJ 25 MG in SODIUM CHLORIDE 0.9% 50ML 50 ML IVPB ONE (19:48)
[2018-08-18] MEDS ORDERED: SODIUM CHLORIDE 0.9% 1000ML 1,000 ML IVS ONE ×2 (19:48→22:31)
[2018-08-18] MEDS ORDERED: ONDANSETRON ODT 8 MG TAB SL ONE (19:48)
[2018-08-18] MEDS ORDERED: PROMETHAZINE HCL INJ 25 MG/ML VIAL ONE (20:02)
[2018-08-18] MEDS ORDERED: SODIUM CHLORIDE 0.9% 50ML 50 ML ONE (20:02)
--- NOTE | 2018-08-18 20:17 | RAD ---
EXAM DESCRIPTION: Abdomen Series CLINICAL HISTORY:62 years Female, nv 3 days, fever Comparison: None FINDINGS: Minimal subsegmental atelectasis at the lung bases. No focal lung consolidation. No pleural effusion. No pneumothorax. Cardiac and mediastinal silhouette is unremarkable. No acute osseous abnormality. Thoracolumbar scoliotic curvature Soft tissues are unremarkable. Nonobstructive bowel gas pattern. No evidence of free air. IMPRESSION: Nonobstructive bowel gas pattern. Minimal subsegmental atelectasis at the lung bases. No focal lung consolidation. Electronically signed by: Michael Phillip MD 08/18/2018 8:16 PM CDT
[2018-08-18] MEDS ORDERED: POTASSIUM CHLORIDE ELIXIR 20 MEQ/15 ML UD PO ONE ×2 (20:40→23:48)
[2018-08-18] MEDS ORDERED: MAGNESIUM SULFATE PREMIX 4GM 4 GM in PREMIX BAG 1 BAG IVPB ONE (21:02)
[2018-08-18] MEDS ORDERED: MAGNESIUM SULFATE PREMIX 4GM 50 ML IVPB ONE (21:17)
[2018-08-18] MEDS ORDERED: CIPROFLOXACIN 500 MG TAB PO ONE (22:12)
--- NOTE | 2018-08-19 00:34 | ED.PDOC ---
History of Present Illness - General Chief Complaint: Fever Stated Complaint: fever, vomiting Time Seen by Provider: 08/18/18 19:47 Source: patient Exam Limitations: no limitations - History of Present Illness Initial Comments: the patient is 62-year-old female presenting to emergency room secondary to nausea and vomiting for the last 48 hours. No diarrhea. No blood in the vomitus. The patient is fairly dehydrated and diaphoretic. She has a diabetic. She reports having had several episodes like this in the past. No history of any pancreatitis. No history of recurrent diverticulitis. Questionable fever yesterday. There is a significant gastroenteritis going around town. She does have a history of hypokalemia and does take a diuretic. Severity: moderate Improving Factors: nothing Worsening Factors: nothing Associated Symptoms: malaise, nausea/vomiting Allergies/Adverse Reactions: Allergies NO KNOWN ALLERGY Allergy (Verified 08/18/18 19:45) Home Medications: Ambulatory Orders Aqhpfnszcq-Uvzvbhzcr-Ctvygqocm [Amlodipine/Valsartan/Hctz 10-160-25 mg] 1 tab PO DAILY@69901/24/16 Aspirin [Aspirin EC] 81 mg PO DAILY@69901/24/16 Carbamazepine [Tegretol] 200 mg PO BID 01/24/16 Albuterol Sulfate Nebs [Proventil Nebs] 2.5 mg INH Q4HR PRN 07/15/17 Metformin HCl 500 mg PO BID 07/15/17 Nebivolol HCl [Bystolic] 10 mg PO BEDTIME 07/15/17 Nebivolol HCl [Bystolic] 20 mg PO DAILY@69907/15/17 Potassium 99 mg PO BEDTIME 07/15/17 Potassium 198 mg PO DAILY@69907/15/17 Rivaroxaban [Xarelto] 10 mg PO QD #8 tab 07/20/17 Amlodipine Besylate-Valsartan [Amlodipine Besylate/Valsa 10-160 mg] 1 tab PO DAILY #30 tab 08/19/18 Ciprofloxacin [Cipro] 500 mg PO BID #14 tab 08/19/18 Ondansetron [Zofran Odt] 4 mg PO Q4H PRN #10 tab 08/19/18 Review of Systems - Review of Systems Constitutional: States: fever, malaise EENTM: States: no symptoms reported Respiratory: States: no symptoms reported Cardiology: States: no symptoms reported Gastrointestinal/Abdominal: States: nausea, vomiting Genitourinary: States: no symptoms reported Musculoskeletal: States: no symptoms reported Skin: States: no symptoms reported Neurological: States: no symptoms reported Endocrine: States: excessive sweating All other Systems: No Change from Baseline Past Medical History (General) - Patient Medical History Hx Seizures: Yes - petit mal last one this AM Hx Stroke: No Hx Asthma: No Hx of COPD: No Hx Cardiac Disorders: Yes Hx Congestive Heart Failure: No Hx Pacemaker: No Hx Hypertension: Yes Hx Diabetes: Yes - FSBS 105 Hx MRSA: No Surgical History: tonsillectomy, Hysterectomy - Vaccination History Hx Influenza Vaccination: Yes Hx Pneumococcal Vaccination: Yes - 2008 - Social History Hx Tobacco Use: Yes Hx Alcohol Use: No Hx Substance Use: No Hx Physical Abuse: No Hx Emotional Abuse: No - Female History Patient is a Female of Child Bearing Age (10 -59 yrs old): No Family Medical History - Family History Father Living Status: Cause of : CHF Hx Family Congestive Heart Failure: Yes Hx Family Diabetes: Yes Mother Living Status: Hx Family Cancer: Yes Hx Family;Other: Lung Cancer Physical Exam - Physical Exam General Appearance: Alert, Ill Appearing Eye Exam: bilateral normal Ears, Nose, Throat: hearing grossly normal Neck: non-tender, supple Respiratory: lungs clear, normal breath sounds, no respiratory distress, no accessory muscle use Cardiovascular/Chest: normal peripheral pulses, regular rate, rhythm, no edema Gastrointestinal/Abdominal: non tender, soft Rectal Exam: deferred Extremity: normal range of motion, non-tender, normal capillary refill 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 The patient has significant hypokalemia and was given 2 large doses of oral potassium. The patient has significant hypomagnesemia and received 4 g IV. She does need to continue to take her oral potassium supplement. The patient also has mild hyponatremia. Given these changes she is going to be taken off of her hydrochlorothiazide. She received 2 L of IV fluid as well. She is feeling much better at this point. She does appear to have a urinary tract infection and her urine will be cultured. She is going to be placed on ciprofloxacin for the gastroenteritis and the urinary tract infection for 7 days. She needs to keep herself well- hydrated. She needs to have a repeat potassium, magnesium and sodium levels drawn in 3-5 days. Return to the ER for any worsening. Zofran will be written for as needed use for nausea and vomiting. Additionally she can take Pepcid twice daily for the next week or 2 until her stomach is feeling better. - Results/Orders Results/Orders: Laboratory Tests 08/18/18 08/18/18 08/18/18 19:35 20:11 20:11 WBC 18.1 H RBC 4.40 Hgb 13.7 Hct 40.7 MCV 92.6 MCH 31.2 H MCHC 33.7 RDW 14.6 H Plt Count 287 MPV 8.0 Absolute Neuts (auto) 16.30 H Absolute Lymphs (auto) 0.70 L Absolute Monos (auto) 1.00 H Absolute Eos (auto) 0.00 Absolute Basos (auto) 0.10 Neutrophils % 90.3 H Lymphocytes % 3.6 L Monocytes % 5.8 Eosinophils % 0.0 L Basophils % 0.3 Sodium 130 L Potassium 2.4 L* Chloride 89 L Carbon Dioxide 28 Anion Gap 15.4 BUN 18 Creatinine 1.14 BUN/Creatinine Ratio 15.8 POC Glucose 177 H Random Glucose 185 H Serum Osmolality 267.5 L Lactic Acid Calcium 9.1 Magnesium 1.4 L Total Bilirubin 0.5 AST 38 ALT 27 Alkaline Phosphatase 110 Creatine Kinase 374 H* CK-MB (CK-2) 4.0 CK-MB (CK-2) % Not Reportable Troponin I 0.05 Serum Total Protein 7.5 Albumin 3.6 Globulin 3.9 H Albumin/Globulin Ratio 0.9 L Amylase 19 L Lipase 19 L TSH 2.06 Urine Color Urine Appearance Urine pH Ur Specific [place] Urine Protein Urine Glucose (UA) Urine Ketones Urine Blood Urine Nitrite Urine Bilirubin Urine Urobilinogen Ur Leukocyte Esterase Urine RBC Urine WBC Ur Epithelial Cells Urine Bacteria 08/18/18 08/18/18 20:11 21:22 WBC RBC Hgb Hct MCV MCH MCHC RDW Plt Count MPV Absolute Neuts (auto) Absolute Lymphs (auto) Absolute Monos (auto) Absolute Eos (auto) Absolute Basos (auto) Neutrophils % Lymphocytes % Monocytes % Eosinophils % Basophils % Sodium Potassium Chloride Carbon Dioxide Anion Gap BUN Creatinine BUN/Creatinine Ratio POC Glucose Random Glucose Serum Osmolality Lactic Acid 2.9 H* Calcium Magnesium Total Bilirubin AST ALT Alkaline Phosphatase Creatine Kinase CK-MB (CK-2) CK-MB (CK-2) % Troponin I Serum Total Protein Albumin Globulin Albumin/Globulin Ratio Amylase Lipase TSH Urine Color Yellow Urine Appearance Cloudy Urine pH 5.5 Ur Specific [place] 1.025 Urine Protein >=300 H Urine Glucose (UA) Negative Urine Ketones Trace Urine Blood Large H Urine Nitrite Negative Urine Bilirubin Small H Urine Urobilinogen 0.2 Ur Leukocyte Esterase Moderate H Urine RBC 20-30 H Urine WBC 20-30 H Ur Epithelial Cells 5-10 Urine Bacteria 1+ acute abdominal series is benign. Departure - Departure Clinical Impression: Gastroenteritis, Dehydration, moderate, Hypokalemia, Hypomagnesemia Urinary tract infection Qualifiers: Urinary tract infection type: acute cystitis Hematuria presence: without hematuria Qualified Code(s): N30.00 - Acute cystitis without hematuria Disposition: Discharge to Home or Self Care Condition: Fair Departure Forms: ED Discharge - Pt. Copy, Patient Portal Self Enrollment Instructions: Hypokalemia (DC), Urinary Tract Infection, Adult (DC), Viral Gastroenteritis, Adult (DC) Diet: bland diet Activity: increase activity as tolerated Referrals: HEIDI ARMIJO IV, PLANT SCIENCES PROFESSOR [Primary Care Provider] - 1-5 Days Prescriptions: Amlodipine Besylate-Valsartan [Amlodipine Besylate/Valsa 10-160 mg] 1 tab PO DAILY #30 tab Ciprofloxacin [Cipro] 500 mg PO BID #14 tab Ondansetron [Zofran Odt] 4 mg PO Q4H PRN #10 tab PRN Reason: Vomiting Home Medications: Ambulatory Orders Eppmxwtfcz-Xgrolxkom-Ulajdctur [Amlodipine/Valsartan/Hctz 10-160-25 mg] 1 tab PO DAILY@0700 01/24/16 Aspirin [Aspirin EC] 81 mg PO DAILY@0700 01/24/16 Carbamazepine [Tegretol] 200 mg PO BID 01/24/16 Albuterol Sulfate Nebs [Proventil Nebs] 2.5 mg INH Q4HR PRN 07/15/17 Metformin HCl 500 mg PO BID 07/15/17 Nebivolol HCl [Bystolic] 10 mg PO BEDTIME 07/15/17 Nebivolol HCl [Bystolic] 20 mg PO DAILY@0700 07/15/17 Potassium 99 mg PO BEDTIME 07/15/17 Potassium 198 mg PO DAILY@0707/15/17 Rivaroxaban [Xarelto] 10 mg PO QD #8 tab 07/20/17 Amlodipine Besylate-Valsartan [Amlodipine Besylate/Valsa 10-160 mg] 1 tab PO DAILY #30 tab 08/19/18 Ciprofloxacin [Cipro] 500 mg PO BID #14 tab 08/19/18 Ondansetron [Zofran Odt] 4 mg PO Q4H PRN #10 tab 08/19/18 Additional Instructions: the patient is a 62-year-old female presenting to the emergency room secondary to 2 days of nausea and vomiting. The patient has significant hypokalemia and was given 2 large doses of oral potassium. The patient has significant hypomagnesemia and received 4 g IV. She does need to continue to take her oral potassium supplement. The patient also has mild hyponatremia. Given these changes she is going to be taken off of her hydrochlorothiazide. She received 2 L of IV fluid as well. She is feeling much better at this point. She does appear to have a urinary tract infection and her urine will be cultured. She is going to be placed on ciprofloxacin for the gastroenteritis and the urinary tract infection for 7 days. She needs to keep herself well- hydrated. She needs to have a repeat potassium, magnesium and sodium levels drawn in 3-5 days. Return to the ER for any worsening. Zofran will be written for as needed use for nausea and vomiting. Additionally she can take Pepcid twice daily for the next week or 2 until her stomach is feeling better.
[2018-08-19 01:46] VITALS: BP 150/79; TEMP 97.9; O2SAT 95
== END 2018-08-19 01:00 | disposition home or self-care (01) ==
LOC: ER 19:22
DX: K52.9 Noninfective gastroenteritis and colitis, unspecified (principal); N30.00 Acute cystitis without hematuria; E86.0 Dehydration; E87.6 Hypokalemia; E83.42 Hypomagnesemia; I10 Essential (primary) hypertension; E11.9 Type 2 diabetes mellitus without complications; I51.9 Heart disease, unspecified; Z79.82 Long term (current) use of aspirin; Z79.899 Other long term (current) drug therapy

== ENCOUNTER → 2018-09-06 | Outpatient (CLI) | payer OTHER | LOC: LAB.O 06:00 | PROVIDERS: ATTEND Nurse Practitioner Family | DX: E87.6 Hypokalemia (principal); E83.42 Hypomagnesemia; N39.0 Urinary tract infection, site not specified ==

== ENCOUNTER → 2018-10-10 | Outpatient (CLI) | payer OTHER | LOC: LAB.O 17:49 | PROVIDERS: ATTEND Nurse Practitioner Family | DX: E87.6 Hypokalemia (principal); E83.42 Hypomagnesemia ==

== ENCOUNTER → 2018-10-18 | Outpatient (CLI) | payer OTHER | LOC: LAB.O 18:26 | PROVIDERS: ATTEND Nurse Practitioner Family | DX: I10 Essential (primary) hypertension (principal); E11.9 Type 2 diabetes mellitus without complications; E78.2 Mixed hyperlipidemia; E83.42 Hypomagnesemia ==

== ENCOUNTER → 2019-11-02 | Outpatient (CLI) | payer OTHER ==
--- NOTE | 2019-11-02 17:26 | CT ---
Procedure: CT LUNG SCREENING Exam Date: 11/02/2019 Ordering Provider: Nas Amaya Clinical Indication: TOBACCO ABUSE . Current cigarette smoker. 17 pack years. This patient meets eligibility criteria for low-dose CT lung cancer screening. Comparison: Chest x-ray May 2017. Technique: Using a multislice scanner, sequential helical axial imaging was obtained in the thorax, 2.5 mm thickness, 2.5 mm separation, from the level of the thoracic inlet through the lung bases without IV contrast. A low dose protocol was utilized for BMI greater than than 30: BMI: 47.2. CTDI: 2.93 mGy. 120. kVp. 45 mA. DLP 104.67 mGy-cm. 2D sagittal and coronal reconstructed images, 6.0 mm thickness, were obtained. This exam was performed according to our departmental dose optimization program which includes use of automated exposure control, adjustment of the mA and/or kV according to patient size and/or use of iterative reconstruction technique. Nodule measurements under 10 mm are given as mean value of 3 axes diameters. FINDINGS: Lungs and large airways: 5 mm groundglass nodule anterior left apex on axial image 12/11 bilateral parenchymal blebs more prevalent in the upper lung newman. Pleural parenchymal scarring in the inferior lingula. Also in the anterior lateral left lower lobe recess. Scarring also in the posterior recess of the right lower lobe. No other nodules and no masses. Pleura and space: Thickening of the upper left major fissure. Bilateral pleural thickening. No effusion or pneumothorax. Mediastinum and francisco: evaluation limited by low dose technique and lack of IV contrast. No enlarged lymph nodes or dominant soft tissue masses. Heart and great vessels: Atherosclerotic calcifications aorta and coronary vessels. Borderline cardiomegaly. Chest wall, lower neck, axillae: Evaluation also limited by same factors as described above. Subcutaneous nodule lateral right skin posterior to the inferior breast at the midthoracic level (axial image ). Nodular density and focal asymmetry in the lower outer quadrant of the right breast. Upper abdomen: Evaluation limited by low-dose technique. No free fluid or free air. Normal density and size of the included adrenal glands and spleen. Atherosclerotic calcifications in the abdominal aorta. Osseous structures: Evaluation limited by low dose MIP technique. Moderate dextroscoliosis upper thoracic spine. Multiple levels of spondylosis. No destructive lesions.. IMPRESSION: 1. 5 mm groundglass nodule left apex. Emphysematous changes bilateral upper lung newman. No abnormal solid or semisolid nodules or masses. No focal infiltrate. Pleural thickening.. [facility] Best Practice Recommendations: please see below for Lung RADS category and FOLLOW-UP.* *Lung RADS category CATEGORY 2- Nodules with a very low likelihood (less than 1%) of becoming a clinically active cancer due to size or lack of growth. Nodules: Perifissural nodule(s) < 10 mm. (526mm3). Solid or part solid nodule(s) less than 6mm (113.1 mm3), new solid nodule less than 4mm (33.5 mm3). Ground glass nodule(s) less than 30mm (44498.2 mm3) or unchanged or slow growing ground glass nodule 30mm or greater. Cat 3 or 4 nodule unchanged for 3 or more months. FOLLOW-UP: Continue annual screening with a Low Dose Chest CT in 12 months for re-evaluation. 2. Lung RADS Modifier S - Clinically Significant or Potentially Clinically Significant Findings (non lung cancer). A. Possible abnormal findings right breast. Consider diagnostic digital breast mammographic examination. Imaging record indicating last screening mammogram at this facility in August 2012. Consider diagnostic digital breast tomosynthesis at this facility. B. skin subcutaneous nodule lateral right side inferior to the right breast. Correlate with clinical examination. Electronically signed by: Demario Salter MD 11/02/2019 5:19 PM LIDAR TECHNICIAN
== END ==
LOC: CT 08:02
PROVIDERS: ATTEND Family Medicine
DX: Z87.891 Personal history of nicotine dependence (principal); R91.1 Solitary pulmonary nodule; J43.9 Emphysema, unspecified; L98.9 Disorder of the skin and subcutaneous tissue, unspecified

== ENCOUNTER → 2019-11-11 | Outpatient (CLI) | payer BC ==
--- NOTE | 2019-11-12 14:58 | MAM ---
EXAM DESCRIPTION: 3D Screening BILATERAL : Digital Mammography. CLINICAL HISTORY: 64 years Female ANNUAL SCREENING . No complaints. No personal history of breast cancer. Female sibling with breast cancer at age 45. No remote family history of breast cancer. Menarche age 14. Childbirth age 28. Menopause age 53. HRT 5 or more years ago.. Lifetime risk of developing breast cancer (Tyrer-Cuzick model)(%): 13.2. COMPARISON: 2-D digital screening bilateral mammography August 2012.. No prior reports available. TECHNIQUE: Bilateral CC and MLO projection full-field images, digital tomosynthesis mammographic technique. Bilateral digital 2-D full-field MLO images. CAD available for 2-D images. FINDINGS: The breast parenchymal density pattern is: Scattered areas of fibroglandular density. No skin thickening or nipple retraction. Dense tissues anterior breast. Bilateral solitary microcalcifications. Tight group of microcalcifications right breast is unremarkable. Bilateral skin mole markers. Bilateral axillary lymph nodes. Increasing fatty replacement bilaterally. No new focal, stellate mass or density, focal asymmetry , and no suspicious microcalcifications bilaterally. IMPRESSION: Benign exam. BIRAD CATEGORY: 2 BENIGN FINDINGS. RECOMMENDATIONS: FOLLOW UP: Routine digital bilateral mammographic screening, one year interval from October 2019. Written communication explaining the IMPRESSION and follow-up, will be mailed to the patient and referring health care provider. According to the [employer], yearly mammograms are recommended starting at age 40 and continuing as long as a woman is in good health. Any breast change noted on a breast self-exam should be reported promptly to the patient's healthcare provider. Breast MRI is recommended for women with an approximately 20-25% or greater lifetime risk of breast cancer, including women with a strong family history of breast or ovarian cancer and women who have been treated for Hodgkin's disease. A negative mammographic report should not delay tissue diagnosis in patients with significant clinical history or physical findings. Extremely dense breast tissue limits the sensitivity of digital mammography. Electronically signed by: Demario Salter MD 11/12/2019 2:56 PM [facility]
== END ==
LOC: MAMMO 07:55
PROVIDERS: ATTEND Nurse Practitioner Family
DX: Z12.31 Encounter for screening mammogram for malignant neoplasm of breast (principal)

== ENCOUNTER → 2020-04-20 | Outpatient (CLI) | payer BC ==
--- NOTE | 2020-04-20 11:33 | US ---
EXAM DESCRIPTION: Venous,Lower Extremity LT (accession [id number]), Venous,Lower Extremity RT (accession [id number]): Ultrasound. CLINICAL HISTORY: LOCALIZED EDEMA COMPARISON: Doppler evaluation of the bilateral lower extremity arterial systems. TECHNIQUE: Two -dimensional and doppler sonographic evaluation of the deep venous system of the bilateral lower extremities. FINDINGS: Doppler evaluation shows normal color flow and normal phasicity and augmentation of the bilateral common femoral veins, junctions with the bilateral proximal saphenous veins, femoral veins, popliteal veins, greater saphenous veins, peroneal and posterior tibial veins. These veins showed normal occlusion with transducer pressure. Two-dimensional survey showed no echogenic clot within these veins. Bilateral interstitial edema in the subcutaneous adipose tissue of the calves. IMPRESSION: Duplex ultrasound evaluation of the bilateral lower extremity deep venous systems showing no evidence of thrombosis. Bilateral interstitial edema in the subcutaneous adipose tissue of the calves. Electronically signed by: Demario Salter MD 04/20/2020 11:32 AM CDT
--- NOTE | 2020-04-20 11:33 | US ---
EXAM DESCRIPTION: Venous,Lower Extremity LT (accession [id number]), Venous,Lower Extremity RT (accession [id number]): Ultrasound. CLINICAL HISTORY: LOCALIZED EDEMA COMPARISON: Doppler evaluation of the bilateral lower extremity arterial systems. TECHNIQUE: Two -dimensional and doppler sonographic evaluation of the deep venous system of the bilateral lower extremities. FINDINGS: Doppler evaluation shows normal color flow and normal phasicity and augmentation of the bilateral common femoral veins, junctions with the bilateral proximal saphenous veins, femoral veins, popliteal veins, greater saphenous veins, peroneal and posterior tibial veins. These veins showed normal occlusion with transducer pressure. Two-dimensional survey showed no echogenic clot within these veins. Bilateral interstitial edema in the subcutaneous adipose tissue of the calves. IMPRESSION: Duplex ultrasound evaluation of the bilateral lower extremity deep venous systems showing no evidence of thrombosis. Bilateral interstitial edema in the subcutaneous adipose tissue of the calves. Electronically signed by: Demario Salter MD 04/20/2020 11:32 AM CDT
--- NOTE | 2020-04-20 11:39 | US ---
EXAM DESCRIPTION: Extremity,Lower Ron Arteries: Ultrasound. CLINICAL HISTORY: OTHER SPECIFIED SOFT TISSUE DISORDERS COMPARISON: None. TECHNIQUE: Doppler evaluation of the bilateral lower extremity arterial flow waveforms and velocities. FINDINGS: Arterial waveforms in the right lower extremity are multiphasic from the right common femoral artery through the right dorsalis pedis artery.. Arterial waveforms in the left lower extremity are multiphasic from the left common femoral artery through the left popliteal artery. Also multiphasic in the left dorsalis pedis artery. Monophasic in the left peroneal artery and left posterior tibial artery.. Comments: Elevated velocities in the left DENTAL LABORATORY TECHNICIAN and left peroneal artery could reflect stenoses. IMPRESSION: Doppler ultrasound of the bilateral lower extremity arterial system shows no evidence of significant atherosclerotic occlusive disease in the right lower extremity and the proximal left lower extremity. Also the left ankle. Elevated velocities and monophasic waveform in the left peroneal artery and left posterior tibial artery could reflect a significant stenosis in the common trunk to the vessels. Consider CTA of the bilateral lower extremities. Electronically signed by: Demario Salter MD 04/20/2020 11:38 AM CDT
== END ==
LOC: US 08:57
PROVIDERS: ATTEND Registered Nurse General Practice
DX: R60.0 Localized edema (principal); I70.223 Atherosclerosis of native arteries of extremities with rest pain, bilateral legs

== ENCOUNTER → 2020-11-09 | Outpatient (CLI) | payer BC, OTHER ==
--- NOTE | 2020-11-10 05:30 | CT ---
Procedure: CT LUNG SCREENING Exam Date: November 09, 2020. Ordering Provider: Nas mAaya Clinical Indication: HISTORY OF NICOTINE DEPENDENCE . Current cigarette smoker. 18 pack-years. This patient meets eligibility criteria for low-dose CT lung cancer screening. Comparison: Low-dose CT lung cancer screening examination October 2019. Technique: Using a multislice scanner, sequential helical axial imaging was obtained in the thorax, 2.5 mm thickness, 2.5 mm separation, from the level of the thoracic inlet through the lung bases without IV contrast. A low dose protocol was utilized for BMI greater than 30: BMI: 47. CTDI: 2.91 mGy. 120. kVp. 75 mA. DLP 108 mGy-cm. 2D sagittal and coronal reconstructed images, 6.0 mm thickness, were obtained. This exam was performed according to our departmental dose optimization program which includes use of automated exposure control, adjustment of the mA and/or kV according to patient size and/or use of iterative reconstruction technique. Nodule measurements under 10 mm are given as mean value of 3 axes diameters. FINDINGS: Lungs and large airways: Bilateral small nondilated parenchymal blebs in a centrilobular distribution predominantly in the upper lung newman. Stable 4.3 mm solid nodule in the subpleural lateral recess of the right lower lobe on CT axial series 2, image 97 bibasilar atelectasis. Stable 5 mm groundglass nodule on image 228 subpleural left upper lobe. Stable 2 mm calcified nodule right upper lobe subpleural. No change in volume loss in the left lower lobe and inferior lingula pleural-parenchymal scarring. No abnormal nodules and no mass. No focal or interval development of infiltrate. Pleura and space: No interval change in bilateral chronic pleural thickening with no acute process. Mediastinum and francisco: evaluation limited by low dose technique and lack of IV contrast. Stable lymph nodes in the mediastinum with no dominant soft tissue mass. Heart and great vessels: Numerous coronary artery calcifications are bilateral change. Also atherosclerotic calcifications brachiocephalic vessels and aorta are stable. Chest wall, lower neck, axillae: Evaluation also limited by same factors as described above. Bilateral breast calcifications with subcutaneous nodules in the adipose tissues which are stable. Upper abdomen: Evaluation limited by low-dose technique and patient large body habitus. No free air or free fluid. Partial visualization of mass in the vicinity of the upper pole of the left kidney with density similar to cyst. Osseous structures: Evaluation limited by low dose MIP technique. Spondylosis and scoliosis thoracic spine. Arthrosis shoulders clavicles and sternal joints. IMPRESSION: 1. Limitations of the study due to patient large body habitus and low-dose technique. Stable groundglass nodule left upper lobe and subpleural solid nodule right lower lobe. No change in pleural parenchymal scarring, particularly inferior lingula and left lower lobe with volume loss. No interval change in mild emphysematous changes upper lobes. No new nodule and no mass. No focal infiltrate or interval development of infiltrate or other process.. [facility] Best Practice Recommendations: please see below for Lung RADS category and FOLLOW-UP.* *Lung RADS category CATEGORY 2- Nodules with a very low likelihood (less than 1%) of becoming a clinically active cancer due to size or lack of growth. Nodules: Perifissural nodule(s) < 10 mm. (526mm3). Solid or part solid nodule(s) less than 6mm (113.1 mm3), new solid nodule less than 4mm (33.5 mm3). Ground glass nodule(s) less than 30mm (46447.2 mm3) or unchanged or slow growing ground glass nodule 30mm or greater. Cat 3 or 4 nodule unchanged for 3 or more months. FOLLOW-UP: Continue annual screening with a Low Dose Chest CT in 12 months for re-evaluation. 2. Lung RADS Modifier S - Clinically Significant or Potentially Clinically Significant Findings (non lung cancer). a. Patient is due for follow-up screening examination at the end of this month. B. Partial visualization of cystic mass in the vicinity of the upper pole left kidney. Consider follow-up renal ultrasound if clinically significant. Electronically signed by: Demario Salter MD 11/10/2020 5:28 AM [facility]
== END ==
LOC: CT 07:26
PROVIDERS: ATTEND Family Medicine
DX: F17.200 Nicotine dependence, unspecified, uncomplicated (principal); R91.1 Solitary pulmonary nodule; J98.4 Other disorders of lung; J43.9 Emphysema, unspecified; Z12.2 Encounter for screening for malignant neoplasm of respiratory organs